=== PATIENT | female | born 1990 | race African-American/Black ===

== ENCOUNTER 2020-08-06 00:23 | Emergency (ER) | payer OTHER, SELFPAY ==
[2020-08-06 00:28] VITALS: BP 116/66; PULSE 63; RESP 16; TEMP 36.8; O2SAT 100
--- NOTE | 2020-08-06 00:42 | ED.FEMALEGU ---
HPI - Female Genitourinary General Chief complaint: Urogenital-Female Stated complaint: uti Time Seen by Provider: 08/06/20 00:26 History of Present Illness HPI Narrative: Left sided pelvic pain x4 days. No radiation. Assocaited with mild dysuria, and nausea. Additionally c/o left breast tenderness. She reports that she has had BV with similar symptoms, but could also be a UTI. No h/o STD. Related Data Allergies Allergy/AdvReac Type Severity Reaction Status Date / Time fentanyl Allergy Unknown Unknown Verified 08/06/20 00:32 Review of Systems Review of Systems: All systems reviewed & are unremarkable except as noted in HPI and below Constitutional: Constitutional: Denies chills ENT: Reports system reviewed and no additional complaints, except as documented Cardiovascular: Cardiovascular: Denies chest pain Respiratory: Respiratory: Denies dyspnea Gastrointestinal: Gastrointestinal: Denies diarrhea, Reports nausea and Denies vomiting Genitourinary: Genitourinary: Denies abnormal vaginal bleeding, Denies hematuria, Denies nocturia, Reports dysuria and Denies vaginal discharge Neurologic: Reports system reviewed and no additional complaints, except as documented [facility] Social History Social History Gender identity (if verbalized by the patient): Female Sexual Orientation (if Verbalized by the Patient): Straight or Heterosexual Exam Const: General: healthy appearing, no acute distress and alert Orientation/consciousness: patient oriented x3 HENMT: Head: normal to inspection Neck: Neck: normal visual inspection Resp: Effort & Inspection: normal respiratory effort Auscultation: clear to auscultation bilaterally, no rales, no rhonchi and no wheezes Cardio: Jugular venous distension: no JVD Rate: regular rate Rhythm: regular rhythm Heart sounds: no murmurs GI: Inspection: non-distended GI Palp: Yes Soft to palpation and Yes Tenderness to palpation present (GI) (LLQ) : General: Yes no CVA tenderness External Female Exam: normal external appearance Speculum Exam - Vagina: abnormal vaginal discharge (copius thick white) and No vaginal bleeding Bimanual exam- vagina & uterus: no cervical motion tenderness Bimanual Exam- Adnexa, other: no masses Skin: General skin exam: normal color Neuro: General: patient oriented x3 and moves all extremities Speech: normal speech Extrem: General: no edema Psych: Appearance: well kempt Affect: normal affect Course Vital Signs Vital signs: Vital Signs Temperature 36.8 C 08/06/20 00:28 Pulse Rate 63 08/06/20 00:28 Respiratory Rate 16 08/06/20 00:28 Blood Pressure 116/66 08/06/20 00:28 Pulse Oximetry 100 08/06/20 00:28 Temperature 36.8 C 08/06/20 00:28 Pulse Rate 67 08/06/20 05:20 Respiratory Rate 18 08/06/20 05:20 Blood Pressure 124/82 08/06/20 05:20 Pulse Oximetry 100 08/06/20 05:20 MDM - Female Genitourinary MDM Narrative Medical decision making narrative: exam most consistent with consistent with yeast infection. Cannot rule out cervicitis or BV. I will treat for all of these and have her follow-up Differential Diagnosis Differential diagnosis: Likely urinary tract infection, bacterial vaginosis, trichomoniasis, cervicitis and ovarian cyst Medical Records Attestation: I reviewed the patient's medical records. Lab Data Attestation: I reviewed the patient's lab results. Result diagrams: 08/06/20 01:32 08/06/20 01:32 Labs: Lab Results 08/06/20 08/06/20 08/06/20 Range/Units 00:47 01:32 01:32 WBC 7.0 (4.5-10.0) K/mm3 RBC 4.54 (4.2-5.4) M/mm3 Hgb 12.6 (12.0-15.0) g/dL Hct 39.7 (37.0-47.0) % MCV 87.4 (80-100) fl MCH 27.8 (26-34) pg MCHC 31.7 L (32-36) g/dl RDW 13.9 (11.5-14.5) % Plt Count 250 (150-375) k/mm3 MPV 10.0 (7.4-10.4) fl Immature Gran % (Auto) 0.7 H (0-0.5) % Neut % (Auto) 60.5 (45.5-73.1) % Lymph % (Auto) 29.4
[2020-08-06 00:46] VITALS: BP 110/64; O2SAT 99
[2020-08-06 01:01] VITALS: BP 110/79; O2SAT 100
[2020-08-06 01:02] LABS: Add Urine Microscopic? YES; Appearance Urine Cloudy (Clear); Bilirubin Urine Negative (Negative); Blood Urine Negative (Negative); Color Urine Yellow (Yellow); Glucose Urine UA Negative (Negative); Ketones Urine Negative (Negative); Leukocyte Esterase Ur Negative LEU/UL (Negative); Mucus Urine Heavy /lpf; Nitrate Urine Negative (Negative); Protein Urine 2+ mg/dL (Negative); Squamous Epithelial Cell Urine Many /hpf (Few); WBC Urine 0-3 /hpf
[2020-08-06 01:06] LABS: Specific Grav Ur 1.032 (1.001-1.035)
[2020-08-06 01:16] VITALS: BP 120/84; O2SAT 100
[2020-08-06 01:41] LABS: Basophils Percent Auto 0.3 % (0.2-1.2); Eosinophils Absolute Auto 0.1 K/mm3 (0-0.3); Hematocrit 39.7 % (37.0-47.0); Hemoglobin 12.6 g/dL (12.0-15.0); Immature Granulocyte Absolute 0.05 K/mm3 (0.00-0.031); Immature Granulocyte Percent A 0.7 % (0-0.5); Lymphocytes Absolute Auto 2.07 K/mm3 (0.9-3.2); Lymphocytes Percent Auto 29.4 % (18.3-44.2); Mean Corpuscular HGB Conc 31.7 g/dl (32-36); Mean Corpuscular Hemoglobin 27.8 pg (26-34); Mean Corpuscular Volume 87.4 fl (80-100); Monocytes Absolute Auto 0.6 K/mm3 (0.1-0.6); Monocytes Percent Auto 8.1 % (2.6-8.5); Neutrophils Absolute Auto 4.3 K/mm3 (1.3-6.7); Neutrophils Percent Auto 60.5 % (45.5-73.1); Platelet Count Result 250 k/mm3 (150-375); Red Blood Count 4.54 M/mm3 (4.2-5.4); Red Cell Distribution Width 13.9 % (11.5-14.5)
[2020-08-06 01:49] LABS: Alanine Aminotransferase 17 U/L (4-35); Albumin Level 4.5 g/dL (3.5-5.1); Alkaline Phosphatase 89 U/L (38-126); Anion Gap 8 mmol/L (8-16); Aspartate Amino Transferase 29 U/L (14-36); Bilirubin,Total 0.5 mg/dL (0.2-1.3); Blood Urea Nitrogen 14 mg/dL (7-17); Calcium 9.2 mg/dL (8.4-10.2); Carbon Dioxide 26 mmol/L (22-30); Chloride 106 mmol/L (98-107); Estimated CRCL calculation 93 ml/min; Estimated Glomerular Filt Rate > 60; Glucose 93 mg/dL (65-105); Lipase 129 U/L (23-300); Potassium 3.8 mmol/L (3.4-5.0); Sodium 140 mmol/L (137-145)
[2020-08-06 03:04] VITALS: BP 112/64; PULSE 64; RESP 14; O2SAT 100
[2020-08-06] MEDS: metroNIDAZOLE 250 MG TABLET 500 MG PO (04:49)
[2020-08-06] MEDS: DOXYCYCLINE HYCLATE 100 MG TABLET PO (04:49)
[2020-08-06] MEDS: FLUCONAZOLE 150 MG TABLET PO (04:50)
[2020-08-06] MEDS: cefTRIAXone 1 GM VIAL 0.5 GM IM (04:53)
[2020-08-06 05:20] VITALS: BP 124/82; PULSE 67; RESP 18; O2SAT 100
== END 2020-08-06 05:10 | disposition home or self-care (01) ==
PROVIDERS: Emergency Provider Emergency Medicine
DX: N89.8 Other specified noninflammatory disorders of vagina (principal)
CPT/HCPCS: 36415; 80053; 81001; 81025; 83690; 85025; 87070; 87491; 87591; 87808; 96372; 99284; A9270; J0696